=== PATIENT | female | born 1960 | race Two or more races ===

== ENCOUNTER 2019-11-13 13:32 | Emergency (ER) | payer MEDICAID, OTHER ==
[~2019-11-13] VITALS: Ht 170.2 cm; Wt 96.2 kg
[2019-11-13 13:54] VITALS: BP 156/85
== END 2019-11-13 14:24 | disposition home or self-care (01) ==
LOC: ER 13:32
DX: M25.562 Pain in left knee (principal); G89.29 Other chronic pain; E11.9 Type 2 diabetes mellitus without complications; Z76.0 Encounter for issue of repeat prescription; Z88.0 Allergy status to penicillin
CPT/HCPCS: 82962

== ENCOUNTER → 2020-02-17 | Emergency (ER) | payer MEDICAID ==
[~2020-02-17] VITALS: Ht 170.2 cm; Wt 90.7 kg
[~2020-02-17] MED LIST: AZITHROMYCIN 500MG/ 250ML 250 ML IV ONE; SODIUM CHLORIDE 0.9% 1,000 ML IV ONE; cloNIDine HCL 0.1 MG TAB PO ONE
[2020-02-17 11:15] LABS: Basophils # (auto) 0 10 ^3/uL (0-0.2); Eosinophils # (auto) 0 10 ^3/uL (0-0.8); Eosinophils % (auto) 0.4 % (0.0-7.0); Hematocrit 45.7 % (36.0-46.0); Hemoglobin 15.4 g/dL (12.2-16.2); Lymphocytes # (auto) 1.2 10 ^3/uL (0.4-5.4); Lymphocytes % (auto) 30.6 % (10.0-50.0); Mean Corpuscular Hemoglobin 30.1 pg (28.0-32.0); Mean Corpuscular Hgb Conc. 33.6 g/dL (32.0-36.0); Mean Corpuscular Volume 89.5 fL (80.0-100.0); Monocytes # (auto) 0.4 10 ^3/uL (0-1.3); Monocytes % (auto) 10.1 % (0.0-12.0); Neutrophils # (auto) 2.3 10 ^3/uL (1.6-8.6); Neutrophils % (auto) 57.9 % (37.0-80.0); Nucleated Red Blood Cells % 0.2 %; Platelet Count (auto) 222 10^3/uL (140-450); Red Cell Distribution Width 13.4 % (11.8-14.3)
[2020-02-17 11:20] LABS: Potassium 3.6 mmol/L (3.5-5.1)
[2020-02-17 11:28] LABS: Albumin 3.3 g/dL (3.4-5.0); BUN/Creatinine Ratio 20.9; Bilirubin, Total 0.5 mg/dL (0.2-1.0); Calcium 8.9 mg/dL (8.5-10.1); Magnesium 2.4 mg/dL (1.6-2.6); Total Protein 7.8 g/dL (6.4-8.2)
[2020-02-17 14:00] VITALS: BP 131/74
[2020-02-17 15:48] LABS: Urine Bacteria NONE SEEN /hpf (None Seen); Urine Blood Negative /uL (Negative); Urine Mucus FEW (None Seen); Urine Specific Gravity 1.017 (1.001-1.035); Urine WBC 1 /hpf (0 - 5)
== END | disposition home or self-care (01) ==
LOC: ER 09:26
DX: E44.1 Mild protein-calorie malnutrition (principal); E11.65 Type 2 diabetes mellitus with hyperglycemia; I10 Essential (primary) hypertension; M19.90 Unspecified osteoarthritis, unspecified site; Z20.828 Contact with and (suspected) exposure to other viral communicable diseases
CPT/HCPCS: 36415; 71045; 80053; 81001; 83605; 83735; 85025; 87040; 87070; 87804; 87880; 96361; 96365; 96366; 99284; C9803; J0456; J7030; U0003

== ENCOUNTER 2020-08-20 10:38 | Emergency (ER) | payer MEDICAID ==
[~2020-08-20] VITALS: Ht 170.2 cm; Wt 100.7 kg
[2020-08-20 11:05] VITALS: BP 180/85
[2020-08-20] MEDS ORDERED: cloNIDine HCL 0.1 MG TAB PO ONE (11:15)
[2020-08-20] MEDS ORDERED: BENAZEPRIL HCL 10 MG TAB PO ONE (11:30)
== END 2020-08-20 11:53 | disposition home or self-care (01) ==
LOC: ER 10:38
DX: S01.532A Puncture wound without foreign body of oral cavity, initial encounter (principal); I10 Essential (primary) hypertension; E11.9 Type 2 diabetes mellitus without complications; Z88.0 Allergy status to penicillin; W22.8XXA Striking against or struck by other objects, initial encounter; Y93.89 Activity, other specified; Y92.89 Other specified places as the place of occurrence of the external cause; Y99.8 Other external cause status
CPT/HCPCS: 99283; J7030

== ENCOUNTER 2021-04-03 00:32 | Emergency (ER) | payer MEDICAID ==
[~2021-04-03] VITALS: Ht 170.2 cm; Wt 99.8 kg
[2021-04-03 00:34] VITALS: BP 193/95
== END 2021-04-03 03:29 | disposition home or self-care (01) ==
LOC: ER 00:34
DX: N61.1 Abscess of the breast and nipple (principal); E66.9 Obesity, unspecified; Z68.34 Body mass index [BMI] 34.0-34.9, adult; I10 Essential (primary) hypertension; E11.9 Type 2 diabetes mellitus without complications; Z88.0 Allergy status to penicillin